=== PATIENT | male | born 1935 | race Caucasian/White ===

== ENCOUNTER 2019-06-01 17:13 | Emergency (ER) | payer OTHER ==
[~2019-06-01] VITALS: Ht 172.7 cm; Wt 73.0 kg
--- NOTE | 2019-06-01 18:11 | PHYS DOC ---
Past History Past Medical History: Anemia, Hypothyroid, Other Additional Past Medical Histor: colitis; factor 5 def Past Surgical History: Appendectomy, Colectomy, Tonsillectomy, Other Additional Past Surgical Histo: BCIR Alcohol Use: None Drug Use: None Adult General Chief Complaint Chief Complaint: WOUND CHECK HPI HPI 83-year-old male presents with bleeding from his abdominal stoma. The patient does not have a) back. She had a colectomy back in the 90s. He had this procedure done which creates an internal pouch that he empties stool from. He has had intermittent bleeding yesterday and today. The bleeding today was more concerning because it seemed to be more of a stream of bright red blood versus a small amount. He has had bleeding with this in the past, but is always been able to stop it without further intervention. He is concerned that this bleeding will not stop. 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 He denies fever or chills. There is no pain at the site. Review of Systems Review of Systems Constitutional: Denies fever or chills [] Eyes: Denies change in visual acuity, redness, or eye pain [] HENT: Denies nasal congestion or sore throat [] Respiratory: Denies cough or shortness of breath [] Cardiovascular: No additional information not addressed in HPI [] GI: Denies abdominal pain, nausea, vomiting. Bleeding from stoma site[] : Denies dysuria or hematuria [] Musculoskeletal: Denies back pain or joint pain [] Integument: Denies rash or skin lesions [] Neurologic: Denies headache, focal weakness or sensory changes [] Endocrine: Denies polyuria or polydipsia [] All other systems were reviewed and found to be within normal limits, except as documented in this note. Allergies Allergies Allergies Coded Allergies Type Severity Reaction Last Updated Verified No Known Drug Allergies 06/01/19 No Physical Exam Physical Exam Constitutional: Well developed, well nourished, no acute distress, non-toxic appearance. [] HENT: Normocephalic, atraumatic, bilateral external ears normal, oropharynx moist, no oral exudates, nose normal. [] Eyes: PERRLA, EOMI, conjunctiva normal, no discharge. [] Neck: Normal range of motion, no tenderness, supple, no stridor. [] Cardiovascular:Heart rate regular rhythm, no murmur [] Lungs & Thorax: Bilateral breath sounds clear to auscultation [] Abdomen: Bowel sounds normal, soft, no tenderness. Bright red blood emanating from right-sided abdominal stoma site [] Skin: Warm, dry, no erythema, no rash. [] Back: No tenderness, no CVA tenderness. [] Extremities: No tenderness, no cyanosis, no clubbing, ROM intact, no edema. [] Neurologic: Alert and oriented X 3, normal motor function, normal sensory function, no focal deficits noted. [] Psychologic: Affect normal, judgement normal, mood normal. [] Current Patient Data Vital Signs Vital Signs Date Time Temp Pulse Resp B/P (MAP) Pulse Ox O2 Delivery O2 Flow Rate FiO2 06/01/19 17:23 97.7 67 18 97 Room Air EKG EKG [] Radiology/Procedures Radiology/Procedures [] Course & Med Decision Making Course & Med Decision Making Pertinent Labs and Imaging studies reviewed. (See chart for details) Patient's labs are unremarkable. His hemoglobin is normal. His INR is 2.0. I examined the patient's stoma and did not find any source of bleeding. I am only able to see about 2 cm into the stoma. I do not see anything to cauterize. I advised patient that this is likely superficial bleed and has self resolved. He continues to have bleeding he may need to see a surgeon. He will return to this facility or another facility with surgeon available if needed. He is stable for discharge at this time. [] Dragon Disclaimer Dragon Disclaimer This electronic medical record was generated, in whole or in part, using a voice recognition dictation system. Departure Departure: Impression: Primary Impression: Stoma bleed Disposition: HOME, SELF-CARE Condition: STABLE Referrals: NORA VASQUEZ MD (PCP) SANNA FRANCO DO Jun 01, 2019 18:11
[2019-06-01 18:29] LABS: BASO % 1 % (0-3); EOS # 0.1 x10^3/uL (0.0-0.7); EOS % 2 % (0-3); HEMOGLOBIN 14.9 g/dL (13.0-17.5); LYMPH % 13 % (24-48); MEAN CORPUSCULAR HEMOGLOBIN 34 pg (25-35); MEAN CORPUSCULAR HGB CONC 33 g/dL (31-37); MEAN CORPUSCULAR VOLUME 103 fL (79-100); MONO # 0.8 x10^3/uL (0.0-1.1); MONO % 11 % (0-9); NEUT # 5.3 x10^3uL (1.8-7.7); NEUT % 74 % (31-73); PLATELET COUNT 227 x10^3/uL (140-400); RED BLOOD COUNT 4.36 x10^6/uL (4.30-5.70); RED CELL DISTRIBUTION WIDTH 13.6 % (11.5-14.5); WHITE BLOOD COUNT 7.2 x10^3/uL (4.0-11.0)
[2019-06-01 18:38] LABS: ALBUMIN 3.7 g/dL (3.4-5.0); ALBUMIN/GLOBULIN RATIO 0.9 (1.0-1.7); CALCIUM 8.9 mg/dL (8.5-10.1); CREATININE 1.3 mg/dL (0.7-1.3); GFR 52.7; POTASSIUM 4.1 mmol/L (3.5-5.1); TOTAL BILIRUBIN 0.4 mg/dL (0.2-1.0); TOTAL PROTEIN 7.7 g/dL (6.4-8.2)
[2019-06-01 19:25] VITALS: BP 121/54
== END 2019-06-01 19:36 | disposition home or self-care (01) ==
LOC: ER 17:13
DX: K94.01 Colostomy hemorrhage (principal); E03.9 Hypothyroidism, unspecified; Z86.2 Personal history of diseases of the blood and blood-forming organs and certain disorders involving the immune mechanism; Z90.49 Acquired absence of other specified parts of digestive tract; Z90.89 Acquired absence of other organs
CPT/HCPCS: 36415; 80053; 85025; 85610; 85730; 99284

== ENCOUNTER → 2020-02-06 | Outpatient (CLI) | payer MEDICARE ==
--- NOTE | 2020-02-06 14:27 | RAD ---
Barium esophagram History: Difficulty swallowing Comparison: None. Findings: AP view of the chest was performed, no significant pleural fluid, pneumothorax, or lobar consolidation. Button projects over the mid left hemithorax. Heart size is considered within normal limits. Barium esophagram was performed. There is small sliding hiatal hernia. There is associated significant stricture formation with severe reduction in luminal diameter, degree of delay of esophageal emptying. There were minimal tertiary contractions of the more distal esophagus. There is some mucosal irregularity of the more distal esophagus. There was episode of transient reflux to the level of the mid to distal esophagus. Fluoroscopy time 1.4 minutes, 124 images. Impression: 1. There is small sliding hiatal hernia, associated significant stricture formation. There was some irregularity of the distal esophageal mucosa as may be seen with esophagitis. There was episode of reflux to the level of the mid to distal esophagus. 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 Electronically signed by: Magno Modi MD (02/06/2020 2:24 PM) [id number]
== END ==
LOC: RAD 10:30
PROVIDERS: ATTEND Family Medicine
DX: K44.9 Diaphragmatic hernia without obstruction or gangrene (principal); K22.8 Other specified diseases of esophagus
CPT/HCPCS: 74220